=== PATIENT | female | born 1990 | race Caucasian/White ===

== ENCOUNTER 2017-05-03 11:55 | Emergency (ER) | payer OTHER ==
[~2017-05-03] VITALS: Ht 165.1 cm; Wt 77.3 kg
[2017-05-03 13:05] VITALS: BP 129/78
== END 2017-05-03 13:13 | disposition home or self-care (01) ==
LOC: EMS 11:57
DX: S93.402A Sprain of unspecified ligament of left ankle, initial encounter (principal); X50.0XXA Overexertion from strenuous movement or load, initial encounter; Y93.89 Activity, other specified; Y92.89 Other specified places as the place of occurrence of the external cause; Y99.8 Other external cause status
CPT/HCPCS: 99285

== ENCOUNTER 2017-12-09 10:23 | Emergency (ER) | payer OTHER ==
[~2017-12-09] VITALS: Ht 162.6 cm; Wt 61.4 kg
[2017-12-09] MEDS ORDERED: KETOROLAC TROMETHAMINE 30 MG/ML VIAL IM ONE (12:15)
[2017-12-09] MEDS ORDERED: LIDOCAINE/PF 1% 5 ML VIAL INJ ONE (12:30)
[2017-12-09] MEDS ORDERED: SULFAMETHOX/TRIMETH DS 800-160 MG/TABLET PO ONE (12:30)
[2017-12-09] MEDS ORDERED: CEPHALEXIN MONOHYDRATE 500 MG CAPSULE PO ONE (12:30)
[2017-12-09 12:45] LABS: APPEARANCE,URINE CLEAR (CLEAR); BILIRUBIN,URINE NEGATIVE (NEGATIVE); GLUCOSE, URINE (UA) NEGATIVE (NEGATIVE); KETONES,URINE NEGATIVE (NEGATIVE); LEUKOCYTE ESTERASE ,URINE NEGATIVE (NEGATIVE); NITRATE,URINE NEGATIVE (NEGATIVE); OCCULT BLOOD,URINE NEGATIVE (NEGATIVE); PROTEIN,URINE NEGATIVE (NEGATIVE); UROBILINOGEN,URINE 0.2 mg/dL (<=1.0)
[2017-12-09 12:50] LABS: BACTERIA,URINE None Seen /HPF (None Seen); RBC,URINE None Seen /HPF (0-2); SQUAMOUS EPITHELIAL CELL,UR Moderate /LPF (None Seen); WBC,URINE None Seen /HPF (0-5)
[2017-12-09 14:10] VITALS: BP 110/70
== END 2017-12-09 14:47 | disposition home or self-care (01) ==
LOC: EMS 10:25
DX: L05.01 Pilonidal cyst with abscess (principal); Z98.51 Tubal ligation status
CPT/HCPCS: 10080; 81001; 96372; 99284; J1885; J3490

== ENCOUNTER 2018-10-03 09:39 | Emergency (ER) | payer OTHER ==
[~2018-10-03] VITALS: Ht 170.2 cm; Wt 79.5 kg
[2018-10-03] MEDS ORDERED: IBUPROFEN 800 MG TABLET PO ONE (12:45)
[2018-10-03 13:09] VITALS: BP 119/70
== END 2018-10-03 14:36 | disposition home or self-care (01) ==
LOC: EMS 09:40
DX: S63.613A Unspecified sprain of left middle finger, initial encounter (principal); Z98.51 Tubal ligation status; X50.0XXA Overexertion from strenuous movement or load, initial encounter; Y93.89 Activity, other specified; Y92.89 Other specified places as the place of occurrence of the external cause; Y99.8 Other external cause status

== ENCOUNTER 2019-09-23 15:56 | Emergency (ER) | payer OTHER ==
[~2019-09-23] VITALS: Ht 167.6 cm; Wt 86.4 kg
[2019-09-23 17:30] LABS: APPEARANCE,URINE CLEAR (CLEAR); BILIRUBIN,URINE NEGATIVE (NEGATIVE); GLUCOSE, URINE (UA) NEGATIVE (NEGATIVE); KETONES,URINE NEGATIVE (NEGATIVE); LEUKOCYTE ESTERASE ,URINE NEGATIVE (NEGATIVE); NITRATE,URINE NEGATIVE (NEGATIVE); OCCULT BLOOD,URINE NEGATIVE (NEGATIVE); PROTEIN,URINE NEGATIVE (NEGATIVE); UROBILINOGEN,URINE 0.2 mg/dL (<=1.0)
[2019-09-23] MEDS ORDERED: ACETAMINOPHEN 500 MG TABLET PO ONE (17:30)
[2019-09-23 17:57] VITALS: BP 128/76
== END 2019-09-23 18:14 | disposition home or self-care (01) ==
LOC: EMS 15:58
DX: R30.0 Dysuria (principal); R10.9 Unspecified abdominal pain; R68.83 Chills (without fever)